=== PATIENT | male | born 1940 | race Caucasian/White ===

== ENCOUNTER 2016-10-10 21:27 | Observation (INO) | payer MEDICARE, BC ==
[~2016-10-10] VITALS: Ht 170.2 cm; Wt 92.8 kg
[~2016-10-10 21:27] MED LIST: ASA LO-DOSE81 MG OR; ASPIRIN EC81 MG PO; ATROVENT I0.5 MG/VIA IN; DIOVAN HC2 OR; DIOVAN80 MG PO; DULERA1 AE1 IN; FOLIC ACID400 MC1 OR; HYDRO PO; IMDUR60 MG PO; JANUVIA100 MG OR; LANTUS; LANTUS100 MG/ML SC; LOPRESSOR 550 MG/TAB PO; PROTONIX40 MG PO; TOPROL XL OR; ULORIC40 MG PO; VALSARTAN PO; XANAX0.25 MG OR; XANAX0.25 MG PO; ZOCOR20 M1 PO; ZOCOR20 MG OR
[2016-10-10] MEDS ORDERED: ALLOPURINOL100 MG PO (21:51)
[2016-10-10] MEDS ORDERED: SOTALOL HCL120 MG PO (21:54)
[2016-10-10] MEDS ORDERED: DIOVAN HCT160 MG/25 PO (21:55)
[2016-10-10] MEDS ORDERED: FOLIC ACID400 MC1 PO (21:56)
[2016-10-10] MEDS ORDERED: PLAVIX75 MG PO (21:57)
[2016-10-10] MEDS ORDERED: TRESIBA FL100 UNIT/M SC (21:58)
[2016-10-10] MEDS ORDERED: ISOSORB MONO120 MG PO (21:58)
[2016-10-10] MEDS ORDERED: SIMVASTATIN20 MG PO (21:59)
[2016-10-10] MEDS ORDERED: NOVOLOG MIX SC (22:01)
[2016-10-10] MEDS ORDERED: ELIQUIS2.5 MG PO (22:01)
[2016-10-10] MEDS ORDERED: [UNRECOGNIZED DRUG - OTHER] IN (22:04)
[2016-10-10 22:12] LABS: HEMATOCRIT 33.8 % (39.0-50.0); HEMOGLOBIN 11.7 g/dl (14.0-18.0); IMMATURE GRANULOCYTES 1.1 % (0.0-1.0); MEAN CELL VOLUME 90.1 fL CALC (80.0-100.0); MEAN CORPUSCULAR HGB 31.2 pG CALC (26.0-32.0); MEAN CORPUSCULAR HGB CONC 34.6 g/L CALC (32.0-36.0); NEUT# 2.88 thou/uL (1.82-7.42); RED BLOOD COUNT 3.75 mill/uL (4.70-6.10); RED CELL DISTRI WIDTH 13.2 % (11.5-15.5)
[2016-10-10 22:29] LABS: ALBUMIN 4.3 g/dL (3.2-5.0); ALKALINE PHOSPHATASE 97 u/l (38-126); ANION GAP 14 (6-22 (CALC)); BILIRUBIN, TOTAL 0.4 mg/dL (0.0-1.4); BUN 50 mg/dL (8-23); BUN/CREATININE RATIO 25 (12-20 (CALC)); CALCIUM 8.9 mg/dL (8.4-10.2); CARBON DIOXIDE 31 mmol/l (22-30); CHLORIDE 97 mmol/l (95-108); GFR 32 ML/MIN (>=60 (CALC)); GFR FOR AFR.AMER. 39 ML/MIN (>=60 (CALC)); GLUCOSE 269 mg/dL (82-115); POTASSIUM 4.1 mmol/l (3.5-5.1); SGOT/AST 20 u/l (19-48); SGPT/ALT 29 u/l (11-66); SODIUM 137 mmol/l (137-146); TOTAL PROTEIN 7.2 g/dL (6.3-8.2)
[2016-10-10 22:41] LABS: MYOGLOBIN 61 ng/mL (0 - 121)
--- NOTE | 2016-10-10 23:41 | NUR ---
FAMILY TO HOME. PT RESTING. NO CHEST PAIN. CM SR. PWD. ATTEMPTED TO CALL REPORT BUT NURSE WITH A PT. WILL CALL BACK.
--- NOTE | 2016-10-10 23:55 | NUR ---
REPORT TO SAI. TO FLOOR WITH MONITOR WITHOUT INCIDENT.
[2016-10-11] VITALS (9 sets, daily range): BP systolic 130–188; BP diastolic 54–78
[2016-10-11 03:09] LABS: URINE BILIRUBIN - DIPSTICK NEGATIVE (NEGATIVE); URINE BLOOD DIPSTICK NEGATIVE (NEGATIVE); URINE CLARITY CLEAR; URINE COLOR YELLOW; URINE GLUCOSE - DIPSTICK 250 mg/dL (NEGATIVE); URINE KETONE NEGATIVE (NEGATIVE); URINE LEUK ESTERASE NEGATIVE (NEGATIVE); URINE NITRITE - DIPSTICK NEGATIVE (Negative); URINE PH 6.5 (4.5-8.0); URINE PROTEIN - DIPSTICK NEGATIVE (NEG-TRACE); URINE UROBILINOGEN - DIPSTICK 0.2 E.U./dL (0.2)
--- NOTE | 2016-10-11 04:37 | NUR ---
PT ASLEEP AT THIS TIME. NO SIGNS OF DISTRESS NOTED. RESPIRATIONS EVEN AND UNLABORED. BLOOD PRESSURE GOING DOWN WITH REST. NO REQUESTS DURING HOURLY ROUNDS. VOIDING CLEAR YELLOW URINE IN BEDSIDE URINAL. SAFETY MEASURES IN PLACE. CALL LIGHT WITHIN REACH.
[2016-10-11 07:09] LABS: CALCIUM 9.3 mg/dL (8.4-10.2); CREATININE 1.6 mg/dL (0.7-1.3); POTASSIUM 3.8 mmol/l (3.5-5.1)
--- NOTE | 2016-10-11 08:00 | NUR ---
ASSESSMENT IS COMPLETED: IV SITE IS FREE FROM REDNESS OR EDEMA. NO C/O PAIN VOICED. CONTINUE TO OSBERVE AND MONITOR.
--- NOTE | 2016-10-11 12:15 | NUR ---
PT IS RELAXING IN BED WITH NO DISTRESS NOTED. SPOUSE IN THE ROOM. CONITNUE TO OSBERVE AND MONITOR.
[2016-10-11] MEDS ORDERED: SORINE80 MG PO (13:12)
[2016-10-11] MEDS ORDERED: BETAPACE120 MG PO (14:03)
--- NOTE | 2016-10-11 16:30 | NUR ---
IV SITE IS FREE FROM REDNESS OR EDEMA. PT HAS BEEN RELAXING IN BED WITH NO DISTRESS NOTED.
--- NOTE | 2016-10-11 20:00 | NUR ---
PATIENT RESTING IN BED WITH VISITORS AT BEDSIDE. PATIENT IS ALERT AND ORIENTEDX3 WITH NO COMPLAINTS AT THIS TIME. PATIENT WITH HEP LOCK TO RIGHT AC-SITE APPEARS HEALTHY WITH GOOD BLOOD RETURN WHEN FLUSHED. SAFETY PRECATUIONS REINFORCED. CALL LIGHT IN REACH. WILL CONT TO MONITOR
--- NOTE | 2016-10-12 | NUR ---
PATIENT RESTING IN BED APPEARS SLEEPING AT THIS TIME IN NO ACUTE DISTRESS. CALL LIGHT IN REACH. WILL CONT TO MONITOR.
--- NOTE | 2016-10-12 04:34 | NUR ---
PATIENT RESTING IN BED AT THIS TIME WITH NO COMPLAINTS AT THIS TIME. CALL LIGHT IN REACH. WILL CONT TO MONITOR.
[2016-10-12 04:40] VITALS: BP 155/57
[2016-10-12 05:53] LABS: HEMATOCRIT 37.5 % (39.0-50.0); IMMATURE GRANULOCYTES 0.3 % (0.0-1.0); MEAN CELL VOLUME 90.6 fL CALC (80.0-100.0); MEAN CORPUSCULAR HGB 31.4 pG CALC (26.0-32.0); MEAN CORPUSCULAR HGB CONC 34.7 g/L CALC (32.0-36.0); NEUT# 4.03 thou/uL (1.82-7.42); RED BLOOD COUNT 4.14 mill/uL (4.70-6.10); RED CELL DISTRI WIDTH 13.2 % (11.5-15.5)
[2016-10-12 06:21] LABS: CALCIUM 9.6 mg/dL (8.4-10.2); CREATININE 1.5 mg/dL (0.7-1.3); POTASSIUM 4.2 mmol/l (3.5-5.1)
--- NOTE | 2016-10-12 07:00 | NUR ---
RECEIVED BEDSIDE REPORT FROM ENIO CUMMINGS. RESTING IN SEMI FOWLERS WITH EYES OPEN, AWAKENS EASILY. RESPS EVEN AND UNLABORED ON ROOM AIR, TELE MONITOR IN PLACE. VOICES NO NEEDS AT THIS TIME. PLAN OF CARE DISCUSSED. SAFETY PRECAUTIONS REINFORCED. BED IN LOWEST POSITION WITH WHEELS LOCKED. CALL LIGHT WITHIN REACH. WILL CONTINUE TO MONITOR.
[2016-10-12 07:30] VITALS: BP 165/63
[2016-10-12 09:38] VITALS: BP 165/63
--- NOTE | 2016-10-12 11:50 | NUR ---
DR BASURTO IN WITH PT AND , NEW ORDERS RECEIVED.
--- NOTE | 2016-10-12 12:15 | NUR ---
SITTING ON SIDE OF BED. AT BEDSIDE. RESPS EVEN AND UNLABORED ON ROOM AIR, TELE MONITOR IN PLACE. VOICES NO NEEDS AT THIS TIME. REPORTS READY TO GO HOME. CALL LIGHT WITHIN REACH. WILL CONTINUE TO MONITOR.
--- NOTE | 2016-10-12 13:51 | NUR ---
Discharge instructions given. Patient verbalizes understanding of same. Discharged in stable condition via Wheelchair to Home with spouse. All belongings sent with pt.
== END 2016-10-12 13:50 | disposition home or self-care (01) ==
LOC: ENPENDDIS → ED 21:27 → ED-I 21:45 → ED 21:45 → ED-I 22:45 → ED 23:25 → MS2 23:26
PROVIDERS: Emergency Medicine; Internal Medicine; ADMIT Internal Medicine; ATTEND Internal Medicine
DX: R07.9 Chest pain, unspecified (principal); I12.9 Hypertensive chronic kidney disease with stage 1 through stage 4 chronic kidney disease, or unspecified chronic kidney disease; E78.5 Hyperlipidemia, unspecified; E11.9 Type 2 diabetes mellitus without complications; N17.9 Acute kidney failure, unspecified; I45.81 Long QT syndrome; I48.91 Unspecified atrial fibrillation; R00.1 Bradycardia, unspecified; I25.10 Atherosclerotic heart disease of native coronary artery without angina pectoris; J44.9 Chronic obstructive pulmonary disease, unspecified; I25.2 Old myocardial infarction; N18.9 Chronic kidney disease, unspecified; M10.9 Gout, unspecified; Z95.5 Presence of coronary angioplasty implant and graft; Z79.01 Long term (current) use of anticoagulants; Z79.02 Long term (current) use of antithrombotics/antiplatelets; Z79.4 Long term (current) use of insulin; Z87.891 Personal history of nicotine dependence

== ENCOUNTER 2018-05-19 08:23 | Observation (INO) | payer MEDICARE, BC ==
[~2018-05-19] VITALS: Ht 170.2 cm; Wt 92.7 kg
[~2018-05-19 08:23] MED LIST changes: +ALLOPURINOL100 MG PO; +BETAPACE120 MG PO; +DIOVAN HCT160 MG/25 PO; +ELIQUIS2.5 MG PO; +FOLIC ACID400 MC1 PO; +ISOSORB MONO120 MG PO; +NOVOLOG MIX SC; +PLAVIX75 MG PO; +SIMVASTATIN20 MG PO; +SORINE80 MG PO; +SOTALOL HCL120 MG PO; +TRESIBA FL100 UNIT/M SC; +[UNRECOGNIZED DRUG - OTHER] IN
--- NOTE | 2018-05-19 08:44 | NUR ---
PATIENT TO ROOM VIA WHEELCHAIR AND PJHYSICIAN AT BEDSIDE FOR EVAL
--- NOTE | 2018-05-19 08:50 | NUR ---
PT STATES HE IS PAIN FREE AT THIS TIME. STATES HE WAS EXPERIENCING LT UPPER CHEST PAIN AND NUMBNESS TO LT ARM APPROX 0300 THIS AM. RESP EVEN AND UNLABORED.BP ELEVATED. MD AWARE AND NEW ORDERS RECEIVED
[2018-05-19 09:00] LABS: HEMATOCRIT 39.4 % (39.0-50.0); HEMOGLOBIN 13.5 g/dl (14.0-18.0); IMMATURE GRANULOCYTES 0.4 % (0.0-5.0); MEAN CELL VOLUME 91.2 fL CALC (80.0-100.0); MEAN CORPUSCULAR HGB 31.3 pG CALC (26.0-32.0); MEAN CORPUSCULAR HGB CONC 34.3 g/L CALC (32.0-36.0); NEUT# 3.61 thou/uL (1.82-7.42); RED BLOOD COUNT 4.32 mill/uL (4.70-6.10); RED CELL DISTRI WIDTH 13.4 % (11.5-15.5)
[2018-05-19] MEDS ORDERED: AURYXIA210 MG PO (09:06)
[2018-05-19] MEDS ORDERED: B-12500 MC1 PO (09:07)
[2018-05-19 09:14] LABS: ANION GAP 16 (6-22 (CALC)); BUN 18 mg/dL (8-23); BUN/CREATININE RATIO 12 (12-20 (CALC)); CARBON DIOXIDE 29 mmol/l (22-30); CHLORIDE 96 mmol/l (95-108); CREATININE 1.5 mg/dL (0.7-1.3); GFR 45 ML/MIN (>=60 (CALC)); GFR FOR AFR.AMER. 55 ML/MIN (>=60 (CALC)); POTASSIUM 4.4 mmol/l (3.5-5.1); SODIUM 137 mmol/l (137-146)
--- NOTE | 2018-05-19 09:50 | NUR ---
PATIENT RESTING AWAITING LAB AND RADIOLOGY RESULTS. PATIENT DENIES ANY CHEST PAIN OR SOB. FAMILY REMAINS AT BEDSIDE
--- NOTE | 2018-05-19 10:37 | NUR ---
MD AT BEDSIDE DISCUSSING PLAN OF CARE. PATIENT AGREES TO STAY IN HOSPITAL FOR ADDITIONAL TESTING AND OBSERVATION. FAMILY AT BEDSIDE AND ACKNOWLEDGES UNDERSTANDING. PATIENT DENIES ANY CHEST PAIN OR SOB AT THIS TIME
--- NOTE | 2018-05-19 11:25 | NUR ---
PT ALERT AND RESPONSIVE. SKIN PWD.
--- NOTE | 2018-05-19 11:39 | NUR ---
ATTEMPTED TO CALL REPORT.
--- NOTE | 2018-05-19 12:01 | NUR ---
TRANSPORTED TO [facility] VIA ON TELE IN STABLE CONDITIOIN
--- NOTE | 2018-05-19 12:05 | NUR ---
PT ARRIVED TO FLOOR VIA W/C ACCOMPANIED BY ZOILA FUENTES AND FAMILY MEMBERS; PT ORIENT TO ROOM, CALL ANDRADE SYSTEM; PT AMBULATE TO RESTROOM WITH STEADY GAIT & STAND BY ASSIST FROM FEED INSPECTION SUPERVISOR; VITALS OBTIANED; RESP EVEN AND UNLABORED ON ROOM AIR; FAMILY MEMBER STATES PT SLEEPS WITH O2 AT NIGHT, BUT NOT SURE HOW MANY LETERS; PT HAS NON PRODUCTIVE COUGH; DENIES PAIN; #20 RAC S/L; SITE APPEARS HEALTHY; TELE IN PLACE; SAFETY PRECAUTION REINFORE; PT VERBALIZE UNDERSTANDING; WILL CONTINUE TO MONITOR.
[2018-05-19 12:48] LABS: CHOLESTEROL HDL RATIO 3.2 (<4.4 (CALC)); MAGNESIUM 1.7 mg/dL (1.6-2.3)
[2018-05-19 13:07] VITALS: BP 182/78
[2018-05-19 15:20] VITALS: BP 179/65
--- NOTE | 2018-05-19 17:14 | NUR ---
ASSISTED PT TO RESTROOM, AND BACK TO BED; PT WALKED WITH SLOW, STEADY GAIT; VOIDED 700CC CLEAR, YELLOW URINE; NON PRODUCTIVE COUGH; TELE IN PLACE; C/O OF NO PAIN; CALL ANDRADE IN REACH; AT BED SIDE;
--- NOTE | 2018-05-19 19:00 | NUR ---
RECEIVED REPORT FROM DAY NURSE. PT RESTING IN BED WATCHING TV. NO NEEDS AT THIS TIME. CALL ANDRADE IN REACH. WILL CONTINUE TO MONITOR.
[2018-05-19 19:30] VITALS: BP 190/90
--- NOTE | 2018-05-19 20:11 | NUR ---
VS OBTAINED AT THIS TIME. 190/[address] OROZCO NOTIFIED, NEW ORDERS RECEIVED.
--- NOTE | 2018-05-19 21:25 | NUR ---
PT RESTING IN BED WATCHING TV. NO DISTRESS NOTED. ASSESMENT COMPLETED AT THIS TIME( SEE INTERVENTIONS) LUNG SOUNDS DIMNINISHED, HR NORMAL, BOWEL SOUNDS ACTIVE. NO SWELLING OR EDEMA, MULTIPLE BRUSING ON ARMS. IV FLUSHES WELL; NO REDNESS OR EDEMA NOTED. PT NEEDS MET AT THIS TIME. CALL BEL IN REACH. WILL CONTINUE TO MONITOR.
--- NOTE | 2018-05-19 23:50 | NUR ---
CALL FROM ER ABOUT RATE CHANGE FROM SR TO AFIB. VS OBTAINED PT BP 169/68 HR [address] OROZCO MADE AWARE OF RATE CHANGE. NEW ORDERS FOR BP AND TEMP RECEIVED. NO NEEDS FROM PT AT THIS TIME. CALL ANDRADE IN REACH. WILL CONTINUE TO MONITOR.
[2018-05-20] VITALS (7 sets, daily range): BP systolic 142–171; BP diastolic 59–82
--- NOTE | 2018-05-20 04:00 | NUR ---
PT RESTING IN BED WITH EYES CLOSED. NO S/S OF DISTRESS NOTED. CALL ANDRADE IN REACH. WILL CONTINUE TO MONITOR.
--- NOTE | 2018-05-20 07:00 | NUR ---
RECEIVED REPORT FROM NURSE TUYET, PATIENT IS RESTING IN BED, DENIES PAIN OR DISCOMFORT AT THIS TIME,EVEN UNLABORED BREATHING, ON TELE. WITH SALINE LOCK ON RAC G20, NO IRRITATION NOTED AT SITE. LAST BM 05/18/18.
--- NOTE | 2018-05-20 08:00 | NUR ---
PATIENT A/O X3 ABLE TO MAKE NEEDS KNOWN, CONTINENT OF B/B, REMAINS ON TELE AFIB 63, DENIES PAIN OR DISCOMFORT, WITH NON PRODUCTIVE COUGH, AYAAN HOSE APPLIED. WILL CONTINUE TO MONITOR CALL LIGHT WITHIN REACH
[2018-05-20] MEDS ORDERED: SOTALOL AF120 MG PO (08:42)
--- NOTE | 2018-05-20 12:00 | NUR ---
SEEN ON ROUND BY STATIONARY EQUIPMENT MECHANIC, NEW ORDERS FOR IV ROCEPHIN AND AZITHROMYCIN, ALSO STARTED ON DUONEBS. PLACED ON O2 AT 2PLM PT IS COPD, WILL CONTINUE TO MONITOR, CALL LIGHT WITHIN REACH
[2018-05-20 12:19] LABS: HEMATOCRIT 35.5 % (39.0-50.0); HEMOGLOBIN 12.2 g/dl (14.0-18.0); MEAN CELL VOLUME 91.3 fL CALC (80.0-100.0); MEAN CORPUSCULAR HGB 31.4 pG CALC (26.0-32.0); MEAN CORPUSCULAR HGB CONC 34.4 g/L CALC (32.0-36.0); RED BLOOD COUNT 3.89 mill/uL (4.70-6.10); RED CELL DISTRI WIDTH 13.6 % (11.5-15.5)
[2018-05-20 12:54] LABS: CREATININE 1.5 mg/dL (0.7-1.3); MAGNESIUM 1.6 mg/dL (1.6-2.3); POTASSIUM 4.2 mmol/l (3.5-5.1)
[2018-05-20 14:56] LABS: URINE BILIRUBIN - DIPSTICK NEGATIVE (NEGATIVE); URINE BLOOD DIPSTICK SMALL (NEGATIVE); URINE COLOR YELLOW; URINE GLUCOSE - DIPSTICK >=1000 mg/dL (NEGATIVE); URINE KETONE NEGATIVE (NEGATIVE); URINE LEUK ESTERASE NEGATIVE (NEGATIVE); URINE NITRITE - DIPSTICK NEGATIVE (Negative); URINE PROTEIN - DIPSTICK 30 mg/dL (NEG-TRACE); URINE SPECIFIC GRAVITY 1.015; URINE UROBILINOGEN - DIPSTICK 0.2 E.U./dL (0.2)
[2018-05-20 15:23] LABS: URINE WBC 0-2 WBC/hpf (0-5)
--- NOTE | 2018-05-20 16:00 | NUR ---
PATIENT A/OX 3 ABLE TO MAKE NEEDS KNOWN, DENIES PAIN OR DISCOMFORT REMAINS ON 02 AT 2LPM WITH EVEN UNLABORED BREATHING, CALL LIGHT WITHIN REACH
--- NOTE | 2018-05-20 19:36 | NUR ---
Report recived from Barbara Zamorano.
--- NOTE | 2018-05-20 21:00 | NUR ---
PT RESTING IN BED. A/OX3. ABLE TO VOICE NEEDS.PT DENIES PAIN AT THIS MOMENT. LUNGS CTA. THROAT SWAB FOR STREP. MEDS TOLERATED WELL. INSULIN COVERAGED PER ORDERS. IV PATENT. POC DISCUSSED. PT VOICED UNDERSTANDING. BED IN LOWER POSITION. CALL ANDRADE IN REACH.WILL MONITOR.
[2018-05-21 00:25] VITALS: BP 152/66
--- NOTE | 2018-05-21 04:00 | NUR ---
pt resting in bed with eyes closed. no pain or distress noted. nonlabored breathing. iv patent. bed in lowest postion. call light in reach. will monitor.
[2018-05-21 04:59] VITALS: BP 167/68
[2018-05-21 05:37] LABS: HEMOGLOBIN 13.6 g/dl (14.0-18.0); IMMATURE GRANULOCYTES 0.4 % (0.0-5.0); MEAN CELL VOLUME 90.7 fL CALC (80.0-100.0); MEAN CORPUSCULAR HGB 31.6 pG CALC (26.0-32.0); MEAN CORPUSCULAR HGB CONC 34.9 g/L CALC (32.0-36.0); NEUT# 3.95 thou/uL (1.82-7.42); RED BLOOD COUNT 4.3 mill/uL (4.70-6.10); RED CELL DISTRI WIDTH 13.5 % (11.5-15.5)
[2018-05-21 06:00] LABS: CREATININE 1.6 mg/dL (0.7-1.3); MAGNESIUM 1.7 mg/dL (1.6-2.3)
[2018-05-21 06:01] LABS: POTASSIUM 5.2 mmol/l (3.5-5.1)
--- NOTE | 2018-05-21 07:02 | NUR ---
PT REPORT RECIEVED FROM Ty BECERRARN. PT SLEEPING. NO S/S OF DISTRESS. CALL LIGHT IN REACH. WILL CONTINUE TO MONITOR.
[2018-05-21 07:51] VITALS: BP 165/69
--- NOTE | 2018-05-21 07:51 | NUR ---
PT A/O X3. SPEECH IS CLEAR. RESP EVEN AND UNNLABORED. LUNG SOUNDS CLEAR. O2@2L ON PT. TELE IN PLACE. BOWEL SOUNDS ACTIVE X4. STRONG RADIAL AND PEDAL PULSES. #20 RAC SL. FLUSHED AND PATENT. SITE HEALTHY. PT DENIES ANY PAIN OR NEEDS. POC DISCUSSED. SAFETY PRECAUTIONS IN PLACE. CALL LIGHT IN REACH. WILL CONTINUE TO MONITOR.
[2018-05-21 09:32] VITALS: BP 160/60
[2018-05-21 11:15] VITALS: BP 160/80
--- NOTE | 2018-05-21 12:00 | NUR ---
PT SITTING IN BED TALKING WITH . NO C/O OF PAIN OR NEEDS. TELE IN PLACE. CALL LIGHT IN REACH. WILL CONTINUE TO MONITOR
[2018-05-21] MEDS ORDERED: DOXYCYCL HYC100 MG PO (15:58)
--- NOTE | 2018-05-21 16:00 | NUR ---
PT RESTING IN BED. NO C/O PAIN OR NEEDS. FAMILY AT BEDSIDE. CALL LIGHT IN REACH. WILL CONTINUE TO MONITOR.
[2018-05-21 16:25] VITALS: BP 160/70
--- NOTE | 2018-05-21 17:28 | NUR ---
D/C INSTRUCTIONS REVIEWED W/ PT AND FAMILY. BOTH STATES UNDERSTANDING. IV REMOVED. CATHETER INTACT. PT GETTING DRESSED. OSS ARCHITECT TO WHEEL PT DOWNSTAIRS
--- NOTE | 2018-05-21 17:38 | NUR ---
Discharge instructions given. Patient verbalizes understanding of same. Discharged in stable condition via Wheelchair to Home with family. All belongings sent with pt.
== END 2018-05-21 17:40 | disposition home or self-care (01) ==
LOC: ED 08:23 → ED-I 10:27 → ED 10:38 → MS2 10:39
PROVIDERS: Family Medicine; Nurse Practitioner Family; ADMIT Internal Medicine; ATTEND Internal Medicine
DX: R07.89 Other chest pain (principal); J44.1 Chronic obstructive pulmonary disease with (acute) exacerbation; I12.9 Hypertensive chronic kidney disease with stage 1 through stage 4 chronic kidney disease, or unspecified chronic kidney disease; E11.22 Type 2 diabetes mellitus with diabetic chronic kidney disease; N18.3 Chronic kidney disease, stage 3 (moderate); I25.10 Atherosclerotic heart disease of native coronary artery without angina pectoris; I16.0 Hypertensive urgency; I48.2 Chronic atrial fibrillation; D63.1 Anemia in chronic kidney disease; M10.9 Gout, unspecified; E78.5 Hyperlipidemia, unspecified; E66.9 Obesity, unspecified; Z95.5 Presence of coronary angioplasty implant and graft; Z79.01 Long term (current) use of anticoagulants; Z87.891 Personal history of nicotine dependence; Z68.32 Body mass index [BMI] 32.0-32.9, adult; Z79.4 Long term (current) use of insulin
CPT/HCPCS: Q9967

== ENCOUNTER → 2018-08-01 | Outpatient (REF) | payer MEDICARE, BC ==
[~2018-08-01] MED LIST changes: +AURYXIA210 MG PO; +B-12500 MC1 PO; +DOXYCYCL HYC100 MG PO; +SOTALOL AF120 MG PO
[2018-08-01 07:50] LABS: URINE BILIRUBIN - DIPSTICK NEGATIVE (NEGATIVE); URINE BLOOD DIPSTICK NEGATIVE (NEGATIVE); URINE COLOR YELLOW; URINE GLUCOSE - DIPSTICK 100 mg/dL (NEGATIVE); URINE KETONE NEGATIVE (NEGATIVE); URINE LEUK ESTERASE NEGATIVE (Negative); URINE NITRITE - DIPSTICK NEGATIVE (Negative); URINE PH 6.5 (4.5-8.0); URINE PROTEIN - DIPSTICK 30 mg/dL (NEG-TRACE); URINE UROBILINOGEN - DIPSTICK 0.2 E.U./dL (0.2)
[2018-08-01 07:53] LABS: HEMATOCRIT 37.9 % (39.0-50.0); HEMOGLOBIN 12.7 g/dl (14.0-18.0); IMMATURE GRANULOCYTES 0.3 % (0.0-5.0); MEAN CELL VOLUME 92.4 fL CALC (80.0-100.0); MEAN CORPUSCULAR HGB CONC 33.5 g/L CALC (32.0-36.0); NEUT# 3.48 thou/uL (1.82-7.42); RED BLOOD COUNT 4.1 mill/uL (4.70-6.10); RED CELL DISTRI WIDTH 13.4 % (11.5-15.5)
[2018-08-01 07:56] LABS: URINE CLARITY CLEAR
[2018-08-01 08:13] LABS: URINE SQUAMOUS EPITHELIAL CELL FEW EPI/hpf (0-FEW)
[2018-08-01 08:16] LABS: ALBUMIN 4.1 g/dL (3.2-5.0); ALKALINE PHOSPHATASE 76 u/l (38-126); ANION GAP 14 (6-22 (CALC)); BILIRUBIN, TOTAL 0.6 mg/dL (0.0-1.4); BUN 26 mg/dL (8-23); BUN/CREATININE RATIO 15 (12-20 (CALC)); CARBON DIOXIDE 32 mmol/l (22-30); CHLORIDE 98 mmol/l (95-108); CREATININE 1.7 mg/dL (0.7-1.3); GFR 39 ML/MIN (>=60 (CALC)); GFR FOR AFR.AMER. 47 ML/MIN (>=60 (CALC)); MAGNESIUM 1.7 mg/dL (1.6-2.3); POTASSIUM 4.2 mmol/l (3.5-5.1); SGOT/AST 18 u/l (19-48); SODIUM 139 mmol/l (137-146); TOTAL PROTEIN 6.9 g/dL (6.3-8.2)
== END | disposition home or self-care (01) ==
LOC: LAB 07:01
PROVIDERS: ATTEND Internal Medicine Nephrology
DX: N18.3 Chronic kidney disease, stage 3 (moderate) (principal); E61.1 Iron deficiency

== ENCOUNTER 2019-11-08 07:44 | Inpatient (IN) | payer MEDICARE, BC ==
[~2019-11-08] VITALS: Ht 170.2 cm; Wt 96.7 kg
--- NOTE | 2019-11-08 07:44 | NUR ---
TO ROOM VIA WHEELCHAIR FOR BEDSIDE TRIAGE, NO S/S OF DISTRESS NOTED AT REST.
--- NOTE | 2019-11-08 08:44 | NUR ---
PT RESTING ON STRETCHER; NO S/S OF DISTRESS NOTED; MONITORING DEVICES IN PLACE; PT ADVISED OF CONTINUED WAIT TIME; SPOUSE AT BEDSIDE; CALL LIGHT WITHIN REACH; WILL CONTINUE TO MONITOR
[2019-11-08 08:46] LABS: HEMATOCRIT 34.4 % (39.0-50.0); HEMOGLOBIN 11.5 g/dl (14.0-18.0); IMMATURE GRANULOCYTES 0.3 % (0.0-5.0); MEAN CELL VOLUME 91.2 fL CALC (80.0-100.0); MEAN CORPUSCULAR HGB 30.5 pG CALC (26.0-32.0); MEAN CORPUSCULAR HGB CONC 33.4 g/dL CAL (32.0-36.0); NEUT# 3.8 thou/uL (1.82-7.42); RED BLOOD COUNT 3.77 mill/uL (4.70-6.10); RED CELL DISTRI WIDTH 13.6 % (11.5-15.5)
[2019-11-08 08:51] LABS: PROTHROMBIN TIME 10.5 SECONDS (9.0-12.5)
[2019-11-08 08:52] LABS: ALBUMIN 3.7 g/dL (3.2-5.0); BILIRUBIN, TOTAL 0.7 mg/dL (0.0-1.4); CREATININE 1.7 mg/dL (0.7-1.3); POTASSIUM 4.3 mmol/l (3.5-5.1); TOTAL PROTEIN 6.6 g/dL (6.3-8.2)
[2019-11-08] MEDS ORDERED: BUSPIRONE5 MG PO (09:10)
[2019-11-08] MEDS ORDERED: WIXELA INHUB 251 AER IN (09:12)
[2019-11-08] MEDS ORDERED: APRESOLINE25 MG/TAB PO (09:13)
--- NOTE | 2019-11-08 09:44 | NUR ---
PT MEDICATED PER MAR WITH IV APRESOLINE FOR HTN; MONITORING DEVICES IN PLACE; WILL CONTINUE TO MONITOR
[2019-11-08 09:47] LABS: C-REACTIVE PROTEIN 0.5 mg/dL (0-0.9)
--- NOTE | 2019-11-08 10:42 | NUR ---
PT TO RADIOLOGY IN STABLE CONDITION AT THIS TIE
--- NOTE | 2019-11-08 11:32 | NUR ---
DR ZACARIAS AT BEDSIDE TO DISCUSS POC AND FINDINGS
--- NOTE | 2019-11-08 11:33 | NUR ---
SBAR PRINTED TO FLOOR
--- NOTE | 2019-11-08 12:30 | NUR ---
PT RESTING ON STRETCHER; AWARE OF CONTINUED WAIT TIME FOR ADMISSION; IV ANTIBIOTICS INFUSING; WILL CONTINUE TO MONITOR
--- NOTE | 2019-11-08 13:30 | NUR ---
DR IRON SCHMIDT PT ELEVATED BP; AWAITING ORDERS PRIOR TO ADMISSION; WILL CONTINUE TO MONITOR
--- NOTE | 2019-11-08 13:50 | NUR ---
Admission Note Report Given to: KEV ZUNIGA Transported by: X Wheelchair Stretcher Transported with: X Nurse Transporter X Patent IV O2 X Vocational Rehabilitation Consultant Location: ICU X [facility]
--- NOTE | 2019-11-08 13:55 | NUR ---
PT ARRIVED TO MS2 VIA WHEELCHAIR ACCOMPANIED BY ER NURSE, PT ALERT AND ORIENTED X3, ORIENTED PT TO ROOM AND CALL LIGHT, DISCUSSED POC, AND ISOLATION PRECAUTIONS, PT VERBALIZED UNDERSTANDING. ADMISSION ASSESSMENT COMPLETED, CALL LIGHT IN REACH,CONTINUE TO MONITOR.
[2019-11-08 14:05] VITALS: BP 137/80
--- NOTE | 2019-11-08 17:00 | NUR ---
PT RESTING IN BED, MEDICATED PER MAR, PT VOICES NO NEEDS OR COMPLAINTS, CALL LIGHT IN REACH,CONTINUE TO MONITOR.
[2019-11-08 19:25] VITALS: BP 195/74
[2019-11-08 23:55] VITALS: BP 190/73
[2019-11-09] VITALS (9 sets, daily range): BP systolic 146–190; BP diastolic 55–84
--- NOTE | 2019-11-09 00:20 | NUR ---
PT COMPLAINED OF SOB. SKIN FLUSHED TRED AND OXYGEN 88. OXYGEN WAS UP TO 3LNC AND OXYGEN LEVEL UP TO 98-995 AND RESPIRATIONS ARE NON NONLABORED. BP 190/73. aPRESOLINE GIVEN PRESCRIBED BY . HOB ELEVATED. PT WAS EDUCATED TO CLL FOR DIFFICULTY BREATHING DUE TO HIM STATING HE WAS SOB FOR ALMOST AN HOUR. PT STATED THE HE UNDERSTOOD AND DEMONSTRATED TO PT HOW TO USE CALL LIGHT AND HE WAS ABLE TO RETURN DEMONSTARTION.
--- NOTE | 2019-11-09 03:06 | NUR ---
PT IN BED WITH EYES CLOSED. USED INCENTIVE SPIROMETER WITH NO COMPLICATIONS. APRESOLINE GIUEN FOR ELEVATED BP AND EFFECTIVE. HOB ELEVATED. OXYGEN AT 3LNC AND O2 SAT 98-99%. CALL LIGHT IS WITHIN REACH, BED IN LOWEST POSITION AND WILL CONTINUE TO OBSERVE
--- NOTE | 2019-11-09 07:47 | NUR ---
PT RESTING IN BED, C/O SOB, RESP LABORED. SPO2 93% ON 2L, INCREASED TO 3 PT STILL C/O SOB. INCREASED TO 3.5L PT SPO2 96%. VITALS OBTAINED. PT MEDICATED PER JUL. ADVAIR USED. IS AT BEDSIDE ENCOUARAGED IT'S USE. ASSESSMENT COMPLETED, CALL LIGHT IN REACH,CONTINUE TO MONITOR.
--- NOTE | 2019-11-09 13:14 | NUR ---
PT RESTING IN BED, DISCUSSED IV ANTIBIOTICS PT VERBALIZED UNDERSTANDING. PT VOICES NO NEEDS OR COMPLAINTS, RESP EVEN AND UNLABORED. CALL LIGHT IN REACH,CONTINUE TO MONITOR.
--- NOTE | 2019-11-09 15:40 | NUR ---
S: KALEBVICTORINO is a 79 M who presents with PNEUMONIA . He has a history of COUGH SOB . All medications in patient's chart were reviewed. O: VS: BP 157/55, P 65, RR 20,T 98 W <=96 kg>, HT 57 IN, Scr=1.7 ,CrCl= 37ml/min> A: Blood culture <is pending/show> which is sensitive to <>. Urine culture <is pending/show> which is sensitive to <>. P: Patient is on CEFEPIME 2 GRAMS Q12H . Vancomycin ordered for pharmacy to dose. Start Vancomycin 1500MG IV Q24H. Vancomycin trough is drawn before the 4th dose on 11/11/19 @ 1300. Vancomycin goal trough is between <10-20 mcg/ml>. Pharmacy will follow and or advise on antibiotics use as needed. VICTORINO WILLIS, PHARMD
[2019-11-10] VITALS (7 sets, daily range): BP systolic 133–187; BP diastolic 54–68
[2019-11-10 05:16] LABS: HEMATOCRIT 32.2 % (39.0-50.0); HEMOGLOBIN 10.8 g/dl (14.0-18.0); IMMATURE GRANULOCYTES 0.2 % (0.0-5.0); MEAN CELL VOLUME 91.2 fL CALC (80.0-100.0); MEAN CORPUSCULAR HGB 30.6 pG CALC (26.0-32.0); MEAN CORPUSCULAR HGB CONC 33.5 g/dL CAL (32.0-36.0); NEUT# 3.07 thou/uL (1.82-7.42); RED BLOOD COUNT 3.53 mill/uL (4.70-6.10); RED CELL DISTRI WIDTH 14.4 % (11.5-15.5)
[2019-11-10 05:28] LABS: ALBUMIN 3.8 g/dL (3.2-5.0); BILIRUBIN, TOTAL 0.6 mg/dL (0.0-1.4); C-REACTIVE PROTEIN 0.9 mg/dL (0-0.9); CREATININE 1.6 mg/dL (0.7-1.3); POTASSIUM 3.9 mmol/l (3.5-5.1); TOTAL PROTEIN 6.2 g/dL (6.3-8.2)
--- NOTE | 2019-11-10 05:42 | NUR ---
PT COMPLAINED OF CHEST PAIN AT 6 ON SCALE OF 1-10 WITH 10 GREATEST AND FEELS PRESSURE ON LEFT SIDE OF CHEST. BP ELEVATED AT187/68 AND APRESOLINE GIVEN WITH MINOR EFFECTIVENESS WITH BP 161/67. MD WAS CALLED AND MADE AWARE AND NEW ORDER FOR EKG, LABS, AND NITROGLYCERIN. EKG SHOWED ATRIAL FIB AT 60. TROPONIN LAB COLLECTED, NITROGLYCERIN GIVEN AND RECHECKED BP AND 153/61. RESIENT STATES THAT CHEST PAIN HAS SUBSIDED. TROPONIN WAS 0.014. MD WAS CALLED AND MADE AWARE OF ELEVATED D-DIMER AND RESULTS OF EKG AND AM LABS. PT IN BED WITH EYES CLOSED AND HOB ELEVATED. CALL LIGTH WITHIN REACH AND BED IN LOWEST POSITION.
--- NOTE | 2019-11-10 08:45 | NUR ---
ASSESSMENT IS COMPLETED: IV SITE IS FREE FROM REDNESS OR EDEMA. HR IS REG,PULSES ARE STRONG X4, ABD IS SOFT WITH ACTIVE BS. BREATH SOUNDS ARE CLEAR AND DIMINISHED. CONTINUE TO OSBERVE AND MONITOR TELE MONITOR IN PLACE.
--- NOTE | 2019-11-10 12:50 | NUR ---
PT IS RELAXING IN BED WITH NO DISTRESS NOTED. IV SITE IS FREE FROM RENDESS ORE TAI.
--- NOTE | 2019-11-10 16:50 | NUR ---
PT IS RELAXING IN BED WITH NO DISTRESS NTOED. IV SITE IS FREE FROM REDNESS OR EDEMA.
--- NOTE | 2019-11-10 21:44 | NUR ---
PT MEDICATED AND ASSESSMENT COMPLETED AT THIS TIME. NO S/O DISTRESS AT THIS TIME. PT REQUESTING MILK OF MAG TO ASSIST WITH CONSTIPATION, PT REPORTS LAST BM YESTERDAY.
--- NOTE | 2019-11-10 23:26 | NUR ---
PT MEDICATED WITH MILK OF MAG AND PRUNE JUICE TO ASSIST WITH STOOLS PER REQUEST. ANTIBIOTIC THERAPY ADMINISTERED AT THIS TIME.
[2019-11-11] VITALS (9 sets, daily range): BP systolic 146–192; BP diastolic 61–75
--- NOTE | 2019-11-11 05:05 | NUR ---
PT LABS DRAWN, PT DENIES ANY OTHER NEEDS. CALL LIGHT AT SIDE.
[2019-11-11 06:05] LABS: HEMATOCRIT 32.4 % (39.0-50.0); HEMOGLOBIN 10.9 g/dl (14.0-18.0); IMMATURE GRANULOCYTES 0.2 % (0.0-5.0); MEAN CORPUSCULAR HGB 30.6 pG CALC (26.0-32.0); MEAN CORPUSCULAR HGB CONC 33.6 g/dL CAL (32.0-36.0); NEUT# 3.52 thou/uL (1.82-7.42); RED BLOOD COUNT 3.56 mill/uL (4.70-6.10)
--- NOTE | 2019-11-11 08:10 | NUR ---
ASSESSMENT IS COMPLETED: IV SITE IS FREE FROM REDNESS OR EDEMA. HR IS REG,PULSES ARE STRONG X4, ABD IS SOFT WITH ACTIVE BS., BREATH SOUNDS ARE CLEAR, BILATERALLY, TELE MONITOR IN PLACE., CONTINUE TO OSBERVE AND MONITOR.
--- NOTE | 2019-11-11 09:32 | NUR ---
PT MOVED TO ROOM 272 VIA WC WITH ALL BELONGINGS. COVID WAS NEGATIVE.
--- NOTE | 2019-11-11 09:51 | NUR ---
PT BP WAS RECHECKED 174/74 AFTER BEING MOVED. O2 @ 2 LITERS
--- NOTE | 2019-11-11 12:00 | NUR ---
PT HAS BEEN SITTING IN THE CHAIR NO DISTRESS NOTED. IV SITE IS FREE FROM REDNESS OR EDEMA.
--- NOTE | 2019-11-11 14:00 | NUR ---
ATTEMPTED TO GET BLOOD FROM PT AND IV SITE , IV SITE BEGAN TO LEAK. UNSUCCESSFUL ON IV STICK WAS TRIED BY ANOTHER NURSE. ABLE TO GET THE BLOOD. AND SENT FOR TESTING. VANCO TROUGH WAS 16
[2019-11-11 14:43] LABS: ALBUMIN 3.9 g/dL (3.2-5.0); BILIRUBIN, TOTAL 0.7 mg/dL (0.0-1.4); C-REACTIVE PROTEIN 0.6 mg/dL (0-0.9); CREATININE 1.6 mg/dL (0.7-1.3); TOTAL PROTEIN 6.8 g/dL (6.3-8.2)
--- NOTE | 2019-11-11 15:03 | NUR ---
S: VICTORINO MANUEL is a 79 M who presents with pneumonia. He has a history of hypertesnion, kidney disease, DM, Cardiac stents CAD, hyperlipidemia, and COPD. All medications in patient's chart were reviewed. O: VS: BP 174/64 mmHg, P 76 bpm, RR 22 breaths/min, T 96.9 F W 96.728 kg, HT 170 cm, Scr= 1.6, CrCl= 37.6 ml/min A: Blood culture pending. P: Patient is on Cefepime HCl 2gm IV BID. Vancomycin ordered for pharmacy to dose. Patient has been receiving Vancomycin 1,500mg IV Q24H. Vancomycin trough is 16 on 11/11/2019 1410. Trough was due @ 1300, but was drawn late. Re-check trough on 11/11 @ 1300 before next dose. Vancomycin goal trough is between 15-20 mcg/ml. Pharmacy will follow and or advise on antibiotics use as needed.
--- NOTE | 2019-11-11 15:20 | NUR ---
AFTER MULTIPLE ATTEMPTS BY MULTIPLE NURSES. #22G STARTED TO KYRA ON 2ND ATTEMPT BY THIS WRITTER,PT TOLERATED WELL.
[2019-11-11 15:25] LABS: POTASSIUM 5.6 mmol/l (3.5-5.1)
--- NOTE | 2019-11-11 16:00 | NUR ---
PT REMAINS IN THE CHAIR. NO DISTRESS NOTED. IV SITE IS FREE FROM REDNESS OR EDEMA.
--- NOTE | 2019-11-11 22:24 | NUR ---
CRITICAL HIGH ACCU-CHECK REPORTED, STAT GLUCOSE ORDERED, PT MEDICATED ORDERS PROVIDE FOR ELEVATED BLOOD SUGAR. PHYSICIAN NOTIFIED. WILL AWAIT NEW ORDERS.
--- NOTE | 2019-11-11 22:45 | NUR ---
PHYSICIAN NOTFIED AND ORDERS FOR NO FURTHER ORDERS AT THIS TIME. RECHECK VIA ACCU-CHECK AT 0000.
[2019-11-12] VITALS (7 sets, daily range): BP systolic 136–213; BP diastolic 56–83
--- NOTE | 2019-11-12 04:00 | NUR ---
V/S OBTAINED AT THIS TIME. PT DENIES ANY NEEDS AT THIS TIME. PT WAS SLEEPING I ENTERED THE ROOM, BUT AWOKE TO MY VOICE.
--- NOTE | 2019-11-12 07:15 | NUR ---
REPORT RECEIVED FROM ZOILA DAVIDSON;PT RESTING IN SEMI FOWLERS POSITION;INTRODUCED SELF TO PT AND POC DISCUSSED;RESPIRATIONS EVEN AND UNLABORED ON O2 @ 2L VIA NC;PT DENIES ANY CURRENT PAIN OR NEEDS;TELE MONITORING IN PLACE;PT ENCOURAGED TO CALL FOR ASSISTANCE IF NEEDED;CALL LIGHT IN REACH;WILL CONTINUE TO MONITOR
--- NOTE | 2019-11-12 08:17 | NUR ---
PT RESTING IN RECLINER,A&O X3;VS OBTAINED AND ASSESSMENT COMPLETED;PT DENIES ANY CURRENT PAIN OR DISCOMFORTS,PAIN SCALE AND REPORTING EDUCATE;CURRENT BP 213/83 HR 72, ALL MORNING MEDICATIONS TO BE ADMINISTERED AT THIS TIME;RESPIRATIONS EVEN AND UNLABORED ON O2 @ 2L VIA NC, CLEAR LUNG SOUNDS;ABDOMEN SOFT ON PALPATION AND ACTIVE IN ALL 4 QUADRANTS;STRONG PEDAL PULSES;#22G TO KYRA FLUSHED AND PATENT,SITE APPEARS HEALTHY;TELE MONTIORING IN PLACE;ACCUCHECK 322, PT COVERED WITH SLIDING SCALE NOVOLOG PER ORDER;PT DENIES ANY ADDITIONAL NEEDS AT THIS TIME AND IS ENCOURAGED TO CALL FOR ASSISTANCE IF NEEDED;CALL LIGHT IN REACH;WILL CONTINUE TO MONITOR
--- NOTE | 2019-11-12 08:31 | NUR ---
LAB AT BEDSIDE
--- NOTE | 2019-11-12 09:50 | NUR ---
BP RE-CHECK 149/63 HR 69
[2019-11-12 10:18] LABS: CREATININE 1.7 mg/dL (0.7-1.3); POTASSIUM 4.5 mmol/l (3.5-5.1)
--- NOTE | 2019-11-12 12:05 | NUR ---
AT BEDSIDE DISCUSSING POC.
--- NOTE | 2019-11-12 12:10 | NUR ---
PT RESTING IN RECLINER;RESPIRATIONS EVEN AND UNLABORED ON RA;PT DENIES ANY CURRENT PAIN OR NEEDS;TELE MONITORING IN PLACE;IV SITE PATENT;ACCUCHECK 440, PER MD ADMINISTER 14 UNITS OF NOVOLOG PER ORDER AND AN ADDIITONAL 20 UNITS OF LEVEMIR;PT DENIES ANY ADDITIONAL NEEDS AT THIS TIME;ENCOURAGED TO CALL FOR ASSISTANCE IF NEEDED;CALL LIGHT IN REACH;WILL CONTINUE TO MONITOR
--- NOTE | 2019-11-12 14:54 | NUR ---
S: VICTORINO MANUEL is a 79 M who presents with pneumonia. He has a history of HTN, DM, COPD, pAFib, and CKD. All medications in patient's chart were reviewed. O: VS: BP 155/57 mmHg, P 65 bmp, RR 20,T 97.2 F W 96.7 kg, HT170 cm, Scr= 1.7 mg/dL, CrCl= 37.7 ml/min Vancomycin trough level on 11/12/19: 16 A: Blood culture is pending. Vancomycin trough level is at goal. P: Patient is on Cefepime 2g IV BID. Vancomycin ordered for pharmacy to dose. Continue Vancomycin 1500 mg IV Q24H. Order to draw trough level before the 4th dose on 11/15/19 at 1300. Vancomycin goal trough is between 15-20 mcg/ml. Pharmacy will follow and or advise on antibiotics use as needed.
--- NOTE | 2019-11-12 15:58 | NUR ---
PT RESTING IN SEMI FOWLERS POSITION;RESPIRATIONS EVEN AND UNLABORED ON O2 @ 2L VIA NC;PT DENIES ANY CURRENT PAIN OR NEEDS;TELE MONITORING IN PLACE;IV SITE PATENT INFUSING IV ABX AT THIS TIME;PT DENIES ANY ADDITIONAL NEEDS AND IS ENCOURAGED TO CALL FOR ASSISTANCE IF NEEDED;CALL LIGHT IN REACH;WILL CONTINUE TO MONITOR
--- NOTE | 2019-11-12 17:40 | NUR ---
NOTIFIED OF ELEVATED BLOOD SUGAR OF 428. ADDITIONAL 6 UNITS OF NOVOLOG ORDERED WELL SCHEDULED 14 UNITS RESULTING IN 20 UNITS TOTAL;WILL CONTINUE TO MONITOR
--- NOTE | 2019-11-12 19:58 | NUR ---
PT RESTING IN BED ALERT AND ORIENTED. RESPIRATIONS EVEN AND UNLABORED ON O2 @ 2L VIA NC. PEDAL PULSES ARE WEAK. PT DENIES ANY PAIN OR DISCOMFORT AT THIS TIME. SAFETY PRECAUTIONS IN PLACE. WILL CONTINUE TO MONITOR.
--- NOTE | 2019-11-13 00:15 | NUR ---
PT RESTING IN BED, RESPIRATIONS EVEN AND UNLABORED. NO S/S OF DISTRESS AT THIS TIME. SAFETY PRECAUTIONSIN PLACE. WILL CONTINUE TO MONITOR.
[2019-11-13 04:04] VITALS: BP 163/76
--- NOTE | 2019-11-13 04:11 | NUR ---
PT BP ELIVATED, PT MEDICATED PER EMAR ORDERS, SAFETY PRECAUTIONS IN PLACE. WILL CONTINUE TO MONITOR.
--- NOTE | 2019-11-13 07:15 | NUR ---
REPORT RECEIVED FROM FEDERICORN;PT RESTING AT BEDSIDE,INTRODUCED SELF TO PT AND POC DISCUSSED;RESPIRATIONS EVEN AND UNLABORED ON O2 @ 2L VIA NC;PT DENIES ANY CURRENT PAIN OR NEEDS;TELE MONITORING IN PLACE;PT DENIES ANY ADDITIONAL NEEDS AT THIS TIME AND IS ENCOURAGED TO CALL FOR ASSISTANCE IF NEEDED;FALL PRECAUTIONS IN PLACE WITH CALL LIGHT IN REACH;WILL CONTINUE TO MONITOR
--- NOTE | 2019-11-13 07:50 | NUR ---
PT RESTING AT BEDSIDE,A&O X3;VS OBTAINED AND ASSESSMENT COMPLETED;PT DENIES ANY CURRENT PAIN OR DISCOMFORTS,PAIN SCALE AND REPORTING EDUCATED;RESPIRATIONS EVEN AND UNLABORED ON O2 @ 2L VIA NC, CLEAR/DIMINISHED LUNG SOUNDS NOTED;ABDOMEN DISTENDED/FIRM ON PALPATION AND ACTIVE IN ALL 4 QUADRANTS, LAST BM 11/11/19. PT MEDICATED WITH MOM AND PRUNE JUICE PER REQUEST TO ASSIST IN BOWEL CARE;STRONG PEDAL PULSES WITH TRACE EDEMA NOTED TO BLE;TELE MONITORING IN PLACE;#22G TO KYRA FLUSHED AND PATENT, ABX STARTED AT THIS TIME, SITE APPEARS HEALTHY;ACCUCHECK 244, PT COVERED WITH SLIDING SCALE NOVOLOG PER ORDER;PT KWABENA ANY ADDITIONAL NEEDS AT THIS TIME AND IS ENCOURAGED TO CALL FOR ASSISTANCE IF NEEDED;FALL PRECAUTIONS IN PLACE WITH CALL LIGHT IN REACH;WILL CONTINUE TO MONTIOR
[2019-11-13 07:52] VITALS: BP 158/70
[2019-11-13 09:48] LABS: CREATININE 1.7 mg/dL (0.7-1.3)
[2019-11-13 11:15] VITALS: BP 155/64
--- NOTE | 2019-11-13 11:22 | NUR ---
AT BEDSIDE DISCUSSING POC.
[2019-11-13] MEDS ORDERED: DOXYCYCL HYC100 MG PO (11:30)
[2019-11-13] MEDS ORDERED: PREDNISONE10 MG PO (11:31)
--- NOTE | 2019-11-13 11:50 | NUR ---
PT RESTING IN RECLINER EATING LUNCH;RESPIRATIONS EVEN AND UNLABORED ON O2 @ 2L VIA NC, O2 REMOVED AT THIS TIME;PT DENIES ANY CURRENT PAIN OR NEEDS;TELE MONITORING IN PLACE;IV SITE PATENT;PT VERBALIZES UNDERSTANDING ON PLAN FOR D/C HOME;ENCOURAGED TO CALL FOR ASSISTANCE IF NEEDED;CALL LIGHT IN REACH;WILL CONTINUE TO MONITOR
--- NOTE | 2019-11-13 12:20 | NUR ---
ALL DISCHARGE INSTRCUTIONS PROVIDED AT THIS TIME.PT INSTRUCTED TO TAKE THE PREDNISONE DIRECTED. DOXY FOR 5 MORE DAYS. F/U WITH PCP AND QUENCHING CAR OPERATOR, MONITOR BLOOD SURGARS AND REPEAT KIDNEY FUNCTION IN 1 WEEK.PT VERBALIZES UNDERSTANDING AND DENIES ANY QUESTIONS; OXYGEN SAT 99% ON RA AFTER BEING OFF O2 FOR 30 MINS, RESPIRATIONS REMAIN EVEN AND UNLABORED;PT DENIES ANY ADDITIONAL NEEDS AT THIS TIME;WHEELCHAIR TO BE PROVIDED FOR D/C HOME;SPOUSE TO TRANSPORT PT HOME.WILL CONTINUE TO MONITOR
--- NOTE | 2019-11-13 12:46 | NUR ---
Discharge instructions given. Patient verbalizes understanding of same. Discharged in stable condition via Wheelchair to Home with spouse. All belongings sent with pt. PT TRANSPORTED TO [facility] IN STABLE CONDITION VIA WHEELCHAIR ACCOMPANIED BY JENNIFER FREIRE AND HUMERA.ALL BELONGINGS SENT WITH PT; SPOUSE TO TRANSPORT PT HOME.
== END 2019-11-13 12:46 | DRG 190 ==
LOC: ED 07:44 → ED-I 11:20 → ED 11:35 → ED-I 11:36 → MS2 11:55
PROVIDERS: Family Medicine; Internal Medicine; Nurse Practitioner Family; ADMIT Internal Medicine; ATTEND Internal Medicine
DX: J44.1 Chronic obstructive pulmonary disease with (acute) exacerbation (principal); J18.9 Pneumonia, unspecified organism; J44.0 Chronic obstructive pulmonary disease with (acute) lower respiratory infection; I12.9 Hypertensive chronic kidney disease with stage 1 through stage 4 chronic kidney disease, or unspecified chronic kidney disease; E11.22 Type 2 diabetes mellitus with diabetic chronic kidney disease; N18.3 Chronic kidney disease, stage 3 (moderate); I25.119 Atherosclerotic heart disease of native coronary artery with unspecified angina pectoris; D63.1 Anemia in chronic kidney disease; I48.0 Paroxysmal atrial fibrillation; E78.5 Hyperlipidemia, unspecified; E11.65 Type 2 diabetes mellitus with hyperglycemia; T38.0X5A Adverse effect of glucocorticoids and synthetic analogues, initial encounter; E87.5 Hyperkalemia; K59.00 Constipation, unspecified; I71.4 Abdominal aortic aneurysm, without rupture; Z95.5 Presence of coronary angioplasty implant and graft; Z87.891 Personal history of nicotine dependence; Z79.4 Long term (current) use of insulin; Z79.01 Long term (current) use of anticoagulants; Z79.02 Long term (current) use of antithrombotics/antiplatelets; Z99.81 Dependence on supplemental oxygen; Z20.828 Contact with and (suspected) exposure to other viral communicable diseases
CPT/HCPCS: G0378; J0692; J3370; Q9967

== ENCOUNTER 2020-09-08 16:24 | Emergency (ER) | payer MEDICARE, BC ==
[~2020-09-08 16:24] MED LIST changes: +APRESOLINE25 MG/TAB PO; +BUSPIRONE5 MG PO; +PREDNISONE10 MG PO; +WIXELA INHUB 251 AER IN
[2020-09-08 17:21] LABS: HEMATOCRIT 40.3 % (39.0-50.0); HEMOGLOBIN 13.2 g/dl (14.0-18.0); IMMATURE GRANULOCYTES 0.3 % (0.0-5.0); MEAN CELL VOLUME 93.3 fL CALC (80.0-100.0); MEAN CORPUSCULAR HGB 30.6 pG CALC (26.0-32.0); MEAN CORPUSCULAR HGB CONC 32.8 g/dL CAL (32.0-36.0); NEUT# 7.03 thou/uL (1.82-7.42); RED BLOOD COUNT 4.32 mill/uL (4.70-6.10)
[2020-09-08 17:34] LABS: ALBUMIN 4.4 g/dL (3.2-5.0); ALKALINE PHOSPHATASE 107 u/l (38-126); AMYLASE 81 u/l (30-110); ANION GAP 12 (6-22 (CALC)); BILIRUBIN, TOTAL 0.9 mg/dL (0.0-1.4); BUN 46 mg/dL (8-23); BUN/CREATININE RATIO 20 (12-20 (CALC)); CARBON DIOXIDE 27 mmol/l (22-30); CHLORIDE 99 mmol/l (95-108); CREATININE 2.2 mg/dL (0.7-1.3); GFR 29 ML/MIN (>=60 (CALC)); GFR FOR AFR.AMER. 35 ML/MIN (>=60 (CALC)); LIPASE 70 u/l (23-300); POTASSIUM 4.3 mmol/l (3.5-5.1); SGOT/AST 34 u/l (19-48); SODIUM 133 mmol/l (137-146); TOTAL PROTEIN 7.6 g/dL (6.3-8.2)
[2020-09-08 17:40] LABS: ACT PARTIAL THROMBO TIME 25.1 SECONDS (20.0-32.5); PROTHROMBIN TIME 9.8 SECONDS (9.0-12.5)
[2020-09-08 18:16] VITALS: BP 173/84
[2021-01-24] MEDS ORDERED: ALBUTEROL/ IN (09:38)
[2021-01-24] MEDS ORDERED: AMIODARONE200 MG PO (09:39)
[2021-01-24] MEDS ORDERED: CARVEDILOL25 MG PO (09:39)
[2021-01-24] MEDS ORDERED: CLONIDINE0.1 MG PO (09:39)
[2021-01-24] MEDS ORDERED: FARXIGA10 MG PO (09:40)
[2021-01-24] MEDS ORDERED: FUROSEMIDE20 MG PO (09:40)
[2021-01-24] MEDS ORDERED: HYDRALAZINE HY100 MG PO (09:41)
[2021-01-24] MEDS ORDERED: IPRATROPIU0.5 MG/3 M IN (09:41)
[2021-01-24] MEDS ORDERED: MIRALAX17 GM (09:42)
[2021-01-24] MEDS ORDERED: LINZESS290 MCG PO (09:42)
[2021-01-24] MEDS ORDERED: MELATONIN10 MG PO (09:43)
[2021-01-24] MEDS ORDERED: NITROGLYCERIN0.4 MG (09:43)
[2021-01-24] MEDS ORDERED: NOVOLO1 SC (09:44)
[2021-01-24] MEDS ORDERED: SPIRONOLACT25 MG PO (09:44)
== END 2020-09-08 18:20 | disposition short-term general hospital (02) ==
LOC: ED 16:24
DX: I24.9 Acute ischemic heart disease, unspecified (principal); I25.110 Atherosclerotic heart disease of native coronary artery with unstable angina pectoris; I71.4 Abdominal aortic aneurysm, without rupture; I10 Essential (primary) hypertension; E11.9 Type 2 diabetes mellitus without complications; J44.9 Chronic obstructive pulmonary disease, unspecified; E78.5 Hyperlipidemia, unspecified; Z79.4 Long term (current) use of insulin; Z95.5 Presence of coronary angioplasty implant and graft; Z20.822 Contact with and (suspected) exposure to COVID-19

== ENCOUNTER 2021-02-15 08:46 | Day surgery (SDC) | payer MEDICARE, BC ==
[~2021-02-15 08:46] MED LIST changes: +ALBUTEROL/ IN; +AMIODARONE200 MG PO; +CARVEDILOL25 MG PO; +CLONIDINE0.1 MG PO; +FARXIGA10 MG PO; +FUROSEMIDE20 MG PO; +HYDRALAZINE HY100 MG PO; +IPRATROPIU0.5 MG/3 M IN; +LINZESS290 MCG PO; +MELATONIN10 MG PO; +MIRALAX17 GM; +NITROGLYCERIN0.4 MG; +NOVOLO1 SC; +SPIRONOLACT25 MG PO
[2021-02-15 11:52] VITALS: BP 168/73
--- NOTE | 2021-02-15 14:36 | NUR ---
PER PHYSICIAN, PATIENT NOTIFIED OF PROCEDURE REPORT AND RECOMMENDATIONS WRITTEN. PATIENT AGREED TO INFORMATION GIVEN. STATED WILL FOLLOW UP WITH PCP FOR CONTINUITY OF CARE. REPORT FORWARDED TO PCP OFFICE FOR DOCUMENTATION AND CONTINUITY OF CARE.
== END 2021-02-15 11:30 | disposition home or self-care (01) ==
LOC: ENDO 08:46
PROVIDERS: ATTEND Surgery
PROC: 0DJD8ZZ Inspection of Lower Intestinal Tract, Via Natural or Artificial Opening Endoscopic (ICD-10-PCS; principal; 2021-02-15)
DX: K59.09 Other constipation (principal); K57.30 Diverticulosis of large intestine without perforation or abscess without bleeding; K64.8 Other hemorrhoids; K64.4 Residual hemorrhoidal skin tags; Z79.01 Long term (current) use of anticoagulants; Z95.5 Presence of coronary angioplasty implant and graft